=== PATIENT | female | born 1965 | race African-American/Black ===

== ENCOUNTER 2020-04-28 12:18 | Observation (INO) | payer BC, OTHER ==
[2020-04-28 12:28] VITALS: BMI 33.8
[2020-04-28] MEDS ORDERED: ASPIRIN 325 MG TABLET PO ONE (12:33)
[2020-04-28] MEDS ORDERED: ASPIRIN 81 MG CHEWABLE TABLETS ONE (12:40)
[2020-04-28] MEDS ORDERED: SODIUM CHLORIDE 1,000 ML IV SCH (12:45)
[2020-04-28 13:11] LABS: EOS % 2.6 % (0-4.5); HEMATOCRIT 39.3 % (32.4-45.2); HEMOGLOBIN 13.1 GM/dL (10.7-15.3); LYMPH % 35.4 % (8-40); MCH 28.2 pg (25.7-33.7); MCHC 33.2 g/dl (32.0-36.0); MEAN CELL VOLUME 84.9 fl (80-96); MEAN PLT VOLUME 8.6 fl (7.5-11.1); PLATELET COUNT 328 K/MM3 (134-434); RBC 4.63 M/mm3 (3.60-5.2); RDW 12.1 % (11.6-15.6); WHITE BLOOD COUNT 5.5 K/mm3 (4.0-10.0)
[2020-04-28 13:19] LABS: INR 1.07 (0.83-1.09); PROTHROMBIN TIME (PATIENT) 12.9 SEC (9.7-13.0)
[2020-04-28 13:22] LABS: ACTIVATED PTT 30.3 SECONDS (25.2-36.5)
[2020-04-28 13:39] LABS: CHLORIDE 101 mmol/L (98-107); POTASSIUM 4.5 mmol/L (3.5-5.1); SODIUM 134 mmol/L (136-145)
[2020-04-28 13:42] LABS: CALCIUM 9.3 mg/dL (8.5-10.1)
[2020-04-28 13:43] LABS: ALBUMIN 3.6 g/dl (3.4-5.0); ANION GAP 9 MMOL/L (8-16); BLOOD UREA NITROGEN 11.5 mg/dL (7-18); CO2 25 mmol/L (21-32); GLUCOSE,RANDOM 399 mg/dL (74-106)
[2020-04-28 13:46] LABS: CHOLESTEROL 189 mg/dL (50-200); CREATININE 0.8 mg/dL (0.55-1.3); SGOT/AST 19 U/L (15-37); SGPT/ALT 17 U/L (13-61); TRIGLYCERIDES 149 mg/dL (0-150)
[2020-04-28 13:47] LABS: BILIRUBIN,TOTAL 0.6 mg/dL (0.2-1); TOT PROT 8.1 g/dl (6.4-8.2)
[2020-04-28 13:48] LABS: ALK PHOS 158 U/L (45-117); HDL CHOLESTEROL 43 mg/dL (40-60)
[2020-04-28 14:00] LABS: LDL CHOLESTEROL (ONLY SJRH) 132 mg/dL (5-100)
[2020-04-28] MEDS: INSULIN SLIDING SCALE (NOVOLOG) 1 VIAL SQ SCH (21:19)
[2020-04-28] MEDS: ATORVASTATIN CA 80 MG TABLET (FP) PO SCH (21:19)
[2020-04-29] MEDS: INSULIN SLIDING SCALE (NOVOLOG) 1 VIAL SQ SCH ×4 (06:37→21:11)
[2020-04-29 07:12] LABS: POTASSIUM 4.3 mmol/L (3.5-5.1)
[2020-04-29 07:26] LABS: BILIRUBIN,TOTAL 0.9 mg/dL (0.2-1); TOT PROT 7.4 g/dl (6.4-8.2)
[2020-04-29 07:30] LABS: ALBUMIN 3.3 g/dl (3.4-5.0); BLOOD UREA NITROGEN 10.3 mg/dL (7-18); CALCIUM 8.8 mg/dL (8.5-10.1); MAGNESIUM 1.9 mg/dL (1.8-2.4)
[2020-04-29 07:33] LABS: CREATININE 0.6 mg/dL (0.55-1.3)
[2020-04-29] MEDS: ASPIRIN COATED 81 MG TABLET.EC PO SCH (09:31)
[2020-04-29] MEDS: ENOXAPARIN NA (PORCINE) 40 MG/0.4 ML DISP.SYRIN SQ SCH (09:31)
[2020-04-29] MEDS: ATORVASTATIN CA 80 MG TABLET (FP) PO SCH (21:11)
[2020-04-29] MEDS ORDERED: INSULIN (LEVEMIR) 100 UNITS/ML UNITS SQ SCH (22:00)
[2020-04-29 23:15] LABS: PH,URINE 5.5 (5.0-8.0); URINE APPEARANCE CLEAR; URINE BILIRUBIN NEGATIVE (NEGATIVE); URINE COLOR YELLOW; URINE GLUCOSE (UA) 3+ (NEGATIVE); URINE KETONE NEGATIVE (NEGATIVE); URINE LEUK ESTERASE NEGATIVE (NEGATIVE); URINE NITRITE NEGATIVE (NEGATIVE); URINE PROTEIN NEGATIVE (NEGATIVE)
[2020-04-30] MEDS: INSULIN SLIDING SCALE (NOVOLOG) 1 VIAL SQ SCH ×2 (06:35→11:55)
[2020-04-30 09:10] VITALS: BP 138/81; PULSE 90; TEMP 98.1
[2020-04-30] MEDS: ASPIRIN COATED 81 MG TABLET.EC PO SCH (09:39)
[2020-04-30] MEDS: ENOXAPARIN NA (PORCINE) 40 MG/0.4 ML DISP.SYRIN SQ SCH (09:39)
[2020-04-30] MEDS ORDERED: LISINOPRIL 5 MG TABLET PO SCH (10:00)
== END 2020-04-30 13:51 | disposition home or self-care (01) ==
LOC: JER 12:18 → UNDOADMOB 15:33 → INTOOBSV 15:33 → JERBED 15:33 → J4S 20:53 → JERBED 04-30 10:27 → J4S 04-30 10:27
PROVIDERS: ADMIT Internal Medicine; ATTEND Nurse Practitioner Family
PROC: 3E013VG Introduction of Insulin into Subcutaneous Tissue, Percutaneous Approach (ICD-10-PCS; principal; 2020-04-30)
PROC: 3E023GC Introduction of Other Therapeutic Substance into Muscle, Percutaneous Approach (ICD-10-PCS; 2020-04-30)
PROC: 3E0337Z Introduction of Electrolytic and Water Balance Substance into Peripheral Vein, Percutaneous Approach (ICD-10-PCS; 2020-04-30)
DX: I63.30 Cerebral infarction due to thrombosis of unspecified cerebral artery (principal); E66.8 Other obesity; Z68.34 Body mass index [BMI] 34.0-34.9, adult; R20.0 Anesthesia of skin; E11.9 Type 2 diabetes mellitus without complications; E78.5 Hyperlipidemia, unspecified; R03.0 Elevated blood-pressure reading, without diagnosis of hypertension; M54.12 Radiculopathy, cervical region; I10 Essential (primary) hypertension; Z23 Encounter for immunization
CPT/HCPCS: 36415; 70496-TC; 70498-TC; 70551-TC; 71045-TC-FY; 72125-TC; 80053; 80061; 81003; 82550; 82962; 83036; 83721; 83735; 84100; 84484; 85025; 85610; 85651; 85730; 86140; 86850; 86900; 86901; 93005; 93010; 93880-TC; 97116-GP; 97161-GP; 99285-25; C9803; G0378; U0003

== ENCOUNTER 2021-02-13 11:00 | Emergency (ER) | payer BC, OTHER ==
[2021-02-13 11:11] VITALS: BMI 31.1
[2021-02-13 13:32] LABS: BASO % 1.1 % (0-2.0); EOS % 2.9 % (0-4.5); HEMATOCRIT 37.8 % (32.4-45.2); HEMOGLOBIN 12.8 GM/dL (10.7-15.3); LYMPH % 37.9 % (8-40); MCH 28.7 pg (25.7-33.7); MCHC 33.9 g/dl (32.0-36.0); MEAN CELL VOLUME 84.6 fl (80-96); MONO % 11.4 % (3.8-10.2); NEUT % 46.7 % (42.8-82.8); PLATELET COUNT 304 10^3/uL (134-434); RBC 4.47 M/mm3 (3.60-5.2); RDW 12.4 % (11.6-15.6); WHITE BLOOD COUNT 5.1 K/mm3 (4.0-10.0)
[2021-02-13 13:59] LABS: ALBUMIN 3.9 g/dl (3.4-5.0); BLOOD UREA NITROGEN 13.9 mg/dL (7-18); CALCIUM 9.4 mg/dL (8.5-10.1)
[2021-02-13 14:03] LABS: CREATININE 0.7 mg/dL (0.55-1.3)
[2021-02-13 14:04] LABS: BILIRUBIN,TOTAL 0.6 mg/dL (0.2-1); TOT PROT 8.8 g/dl (6.4-8.2)
[2021-02-13 14:08] LABS: ERYTHROCYTE SEDIMENTATION RATE 75 mm/hr (0-30)
[2021-02-13 15:58] VITALS: BP 146/87; PULSE 76; TEMP 98.3
== END 2021-02-13 15:50 | disposition home or self-care (01) ==
LOC: JER 11:00
DX: R51.9 Headache, unspecified (principal)
CPT/HCPCS: 36415; 70450-TC; 80053; 85025; 85651; 99284-25

== ENCOUNTER 2023-02-16 04:39 | Day surgery (SDC) | payer OTHER ==
[2023-02-13 10:46] VITALS: BMI 32.9
[2023-02-16 11:59] VITALS: TEMP 96.6
[2023-02-16 12:50] VITALS: BP 155/72; PULSE 65; RESP 14
== END 2023-02-16 13:00 | disposition home or self-care (01) ==
LOC: JASU-ENDO 04:39
PROVIDERS: ATTEND Internal Medicine Gastroenterology
PROC: 0DBN8ZX Excision of Sigmoid Colon, Via Natural or Artificial Opening Endoscopic, Diagnostic (ICD-10-PCS; 2023-02-16)
PROC: 0DBH8ZX Excision of Cecum, Via Natural or Artificial Opening Endoscopic, Diagnostic (ICD-10-PCS; 2023-02-16)
PROC: 0DBK8ZX Excision of Ascending Colon, Via Natural or Artificial Opening Endoscopic, Diagnostic (ICD-10-PCS; principal; 2023-02-16 10:15)
DX: Z12.11 Encounter for screening for malignant neoplasm of colon (principal); D12.5 Benign neoplasm of sigmoid colon; D12.2 Benign neoplasm of ascending colon; D12.0 Benign neoplasm of cecum; K64.8 Other hemorrhoids
CPT/HCPCS: 88305-TC

== ENCOUNTER → 2024-12-14 | Day surgery (SDC) | payer OTHER | END | disposition home or self-care (01) | LOC: JMAMMO-SUR 08:14 | PROVIDERS: ATTEND Internal Medicine | PROC: 07D63ZX Extraction of Left Axillary Lymphatic, Percutaneous Approach, Diagnostic (ICD-10-PCS; principal; 2024-12-14) | DX: D36.0 Benign neoplasm of lymph nodes (principal) | CPT/HCPCS: 19083; 76942-TC; 87899; 88305-TC; A4648 ==

== ENCOUNTER → 2024-12-22 | Day surgery (SDC) | payer OTHER | END | disposition home or self-care (01) | LOC: FMAMMOTONE 11:15 | PROVIDERS: ATTEND Internal Medicine | PROC: 0H9U3ZX Drainage of Left Breast, Percutaneous Approach, Diagnostic (ICD-10-PCS; principal; 2024-12-22) | DX: D24.2 Benign neoplasm of left breast (principal) | CPT/HCPCS: 19081; 88305-TC; A4648 ==